=== PATIENT | male | born 1995 | race Hispanic/Latino ===

== ENCOUNTER 2017-11-22 14:16 | Emergency (ER) | payer OTHER, SELFPAY ==
--- NOTE | 2017-11-22 15:28 | ER ---
Nurse's Notes [facility] Name: Erasto Villalobos III Age: 22 yrs Sex: Male : 1995 Arrival Date: 11/22/2017 Time: 14:20 Bed 6 Private MD: None, None Diagnosis: Cellulitis of right finger Presentation: 11/22 14:23 Presenting complaint: Patient states: Swelling and pain to right thumb since this AM. aj Transition of care: patient was not received from another setting of care. Onset of symptoms was November 22, 2017. Care prior to arrival: None. 14:23 Method Of Arrival: Ambulatory aj 14:23 Acuity: TIMOTHY 4 aj 15:45 Risk Assessment: Do you want to hurt yourself or someone else? Patient reports no sg desire to harm self or others. Initial Sepsis Screen: Does the patient meet any 2 criteria? No. Patient's initial sepsis screen is negative. Does the patient have a suspected source of infection? No. Patient's initial sepsis screen is negative. Triage Assessment: 14:24 General: Appears in no apparent distress. comfortable, Behavior is calm, cooperative, aj appropriate for age. Pain: Complains of pain in dorsal aspect of distal phalanx of right thumb, dorsal aspect of proximal phalanx of right thumb, palmar aspect of distal phalanx of right thumb and palmar aspect of proximal phalanx of right thumb. Neuro: Level of Consciousness is awake, alert, obeys commands, Oriented to person, place, time, situation, Appropriate for age. Respiratory: Airway is patent Respiratory effort is even, unlabored, Respiratory pattern is regular, symmetrical. Derm: Skin is intact, is healthy with good turgor, Skin is pink, warm \T\ dry. normal. Musculoskeletal: Swelling present in dorsal aspect of distal phalanx of right thumb, dorsal aspect of proximal phalanx of right thumb, palmar aspect of distal phalanx of right thumb, palmar aspect of proximal phalanx of right thumb and right thumbnail. Historical: - Allergies: 14:24 Amoxicillin; aj 14:24 PENICILLINS; aj - Home Meds: 14:24 None [Active]; aj - PMHx: 14:24 Asthma; aj - PSHx: 14:24 None; aj - Immunization history:: Adult Immunizations up to date. - Social history:: Smoking status: Patient uses tobacco products, smokes one-half pack cigarettes per day. - Family history:: not pertinent. - Ebola Screening: : Patient negative for fever greater than or equal to 101.5 degrees Fahrenheit, and additional compatible Ebola Virus Disease symptoms Patient denies exposure to infectious person Patient denies travel to an Ebola-affected area in the 21 days before illness onset No symptoms or risks identified at this time. - History obtained from: spouse. Screenin:47 Abuse screen: Denies threats or abuse. Denies injuries from another. Nutritional iw screening: No deficits noted. Tuberculosis screening: No symptoms or risk factors identified. Fall Risk None identified. Assessment: 14:47 General: Appears in no apparent distress. Behavior is calm, cooperative. Pain: iw Complains of pain in right thumbnail and right hand. Neuro: Level of Consciousness is awake, alert, obeys commands, Oriented to person, place, time, Moves all extremities. Full function. Cardiovascular: Patient's skin is warm and dry. Respiratory: Respiratory effort is even, unlabored, Respiratory pattern is regular, symmetrical. Derm: Skin is pink, warm \T\ dry. normal. Vital Signs: 14:24 BP 129 / 63; Pulse 73; Resp 16; Temp 98.6; Pulse Ox 99% on R/A; Weight 86.18 kg; Height aj 5 ft. 5 in. (165.10 cm); 15:40 BP 122 / 60; Pulse 70; Resp 17; Temp 98.6; Pulse Ox 99% on R/A; Pain 0/10; sg 14:24 Body Mass Index 31.62 (86.18 kg, 165.10 cm) ED Course: 14:20 Patient arrived in ED. mr 14:20 None, None is Private Physician. mr 14:24 Triage completed. aj 14:24 Arm band placed on left wrist. Patient placed in an exam room. aj 14:42 [facility] kav 14:42 Chris Cerrato MD is Attending Physician. kav 14:47 Andie Dunbar, GABRIELLA is Primary Nurse. iw 15:00 No provider procedures requiring assistance completed. Patient did not have IV access sg during this emergency room visit. 15:06 X-ray completed. Portable x-ray completed in exam room. Patient tolerated procedure ml well. 15:07 Hand Right 3 View XRAY: pain right hand thumb In Process Unspecified. EDMS 15:45 Patient has correct armband on for positive identification. Bed in low position. Call sg light in reach. Pulse ox on. NIBP on. Head of bed elevated. Administered Medications: No medications were administered Outcome: 15:27 Discharge ordered by . gabriela 15:45 Discharged to home ambulatory, with family. sg 15:45 Condition: good 15:45 Discharge instructions given to patient, Instructed on discharge instructions, follow up and referral plans. medication usage, safety practices, Demonstrated understanding of instructions, follow-up care, medications, Prescriptions given X 3. 15:50 Patient left the ED. sg Signatures: Dispatcher [employer] EDMS Jeferson Blackburn RN Keara Chadwick RN Doreen Yousif, LENS DOTTER LENS DOTTER Toya Dumont Irene, RN Claudia Woo
--- NOTE | 2017-11-22 15:28 | EDPHYS ---
Physician Documentation [facility] Name: Erasto Villalobos III Age: 22 yrs Sex: Male : 1995 Arrival Date: 11/22/2017 Time: 14:20 Bed 6 Private MD: None, None ED Physician Chris Cerrato HPI: 11/22 14:43 This 22 yrs old Male presents to ER via Ambulatory with complaints of Thumb kav swelling. 14:52 The patient or guardian complains of swelling. The complaints affect the right hand. kav Context: The problem was sustained at an unknown location, resulted from unknown cause. Onset: The symptoms/episode began/occurred acutely, 1 day(s) ago. Treatment prior to arrival includes: no previous treatment. Modifying factors: The symptoms are alleviated by nothing. the symptoms are aggravated by movement. Associated signs and symptoms: Pertinent positives: erythema, swelling, Pertinent negatives: deformity, fever, nausea, numbness, tingling, vomiting, weakness. Severity of symptoms: At their worst the symptoms were mild, just prior to arrival. The patient has not experienced similar symptoms in the past. The patient has not recently seen a physician. 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 Historical: - Allergies: 14:24 Amoxicillin; aj 14:24 PENICILLINS; aj - Home Meds: 14:24 None [Active]; aj - PMHx: 14:24 Asthma; aj - PSHx: 14:24 None; aj - Immunization history:: Adult Immunizations up to date. - Social history:: Smoking status: Patient uses tobacco products, smokes one-half pack cigarettes per day. - Family history:: not pertinent. - Ebola Screening: : Patient negative for fever greater than or equal to 101.5 degrees Fahrenheit, and additional compatible Ebola Virus Disease symptoms Patient denies exposure to infectious person Patient denies travel to an Ebola-affected area in the 21 days before illness onset No symptoms or risks identified at this time. - History obtained from: spouse. ROS: 14:53 Constitutional: Negative for fever, chills, and weight loss, Eyes: Negative for injury, kav pain, redness, and discharge, ENT: Negative for injury, pain, and discharge, Neck: Negative for injury, pain, and swelling, Cardiovascular: Negative for chest pain, palpitations, and edema, Respiratory: Negative for shortness of breath, cough, wheezing, and pleuritic chest pain, Abdomen/GI: Negative for abdominal pain, nausea, vomiting, diarrhea, and constipation, Back: Negative for injury and pain, : Negative for injury, bleeding, discharge, and swelling, MS/Extremity: Negative for injury and deformity, Neuro: Negative for headache, weakness, numbness, tingling, and seizure, Psych: Negative for depression, anxiety, suicide ideation, homicidal ideation, and hallucinations, Allergy/Immunology: Negative for hives, rash, and allergies, Endocrine: Negative for neck swelling, polydipsia, polyuria, polyphagia, and marked weight changes, Hematologic/Lymphatic: Negative for swollen nodes, abnormal bleeding, and unusual bruising. 14:53 Skin: Positive for erythema, swelling, of the palmar aspect of proximal phalanx of right thumb. Exam: 14:53 Constitutional: This is a well developed, well nourished patient who is awake, alert, kav and in no acute distress. Head/Face: Normocephalic, atraumatic. Eyes: Pupils equal round and reactive to light, extra-ocular motions intact. Lids and lashes normal. Conjunctiva and sclera are non-icteric and not injected. Cornea within normal limits. Periorbital areas with no swelling, redness, or edema. ENT: Nares patent. No nasal discharge, no septal abnormalities noted. Tympanic membranes are normal and external auditory canals are clear. Oropharynx with no redness, swelling, or masses, exudates, or evidence of obstruction, uvula midline. Mucous membranes moist. Neck: Trachea midline, no thyromegaly or masses palpated, and no cervical lymphadenopathy. Supple, full range of motion without nuchal rigidity, or vertebral point tenderness. No Meningismus. Chest/axilla: Normal chest wall appearance and motion. Nontender with no deformity. No lesions are appreciated. Cardiovascular: Regular rate and rhythm with a normal S1 and S2. No gallops, murmurs, or rubs. Normal PMI, no JVD. No pulse deficits. Respiratory: Lungs have equal breath sounds bilaterally, clear to auscultation and percussion. No rales, rhonchi or wheezes noted. No increased work of breathing, no retractions or nasal flaring. Abdomen/GI: Soft, non-tender, with normal bowel sounds. No distension or tympany. No guarding or rebound. No evidence of tenderness throughout. Back: No spinal tenderness. No costovertebral tenderness. Full range of motion. MS/ Extremity: Pulses equal, no cyanosis. Neurovascular intact. Full, normal range of motion. Neuro: Awake and alert, GCS 15, oriented to person, place, time, and situation. Cranial nerves II-XII grossly intact. Motor strength 5/5 in all extremities. Sensory grossly intact. Cerebellar exam normal. Normal gait. Psych: Awake, alert, with orientation to person, place and time. Behavior, mood, and affect are within normal limits. 14:53 Skin: cellulitis, that is minimal, on the palmar aspect of proximal phalanx of right thumb. Vital Signs: 14:24 BP 129 / 63; Pulse 73; Resp 16; Temp 98.6; Pulse Ox 99% on R/A; Weight 86.18 kg; Height aj 5 ft. 5 in. (165.10 cm); 15:40 BP 122 / 60; Pulse 70; Resp 17; Temp 98.6; Pulse Ox 99% on R/A; Pain 0/10; sg 14:24 Body Mass Index 31.62 (86.18 kg, 165.10 cm) aj MDM: 14:42 Medical screening is not applicable. ka 15:26 Data reviewed: vital signs, nurses notes, radiologic studies, plain films. [facility] 11/22 14:51 Order name: Hand Right 3 View XRAY: pain right hand thumb kav Administered Medications: No medications were administered Disposition: 22:11 Co-signature as Attending Physician, Chris Cerrato MD I agree with the assessment and kdr plan of care. Disposition: 11/22/17 15:27 Discharged to Home. Impression: Cellulitis of right finger. - Condition is Stable. - Discharge Instructions: Cellulitis, [id number]. - Prescriptions for mupirocin 2 % Topical ointment - apply 1 application by TOPICAL route 3 times per day; 1 tube. Bactrim DS 800- 160 mg Oral Tablet - take 1 tablet by ORAL route every 12 hours for 10 days; 20 tablet. Ibuprofen 800 mg Oral Tablet - take 1 tablet by ORAL route every 8 hours As needed take with food; 30 tablet. - Medication Reconciliation Form, Thank You Letter, Antibiotic Education, Prescription Opioid Use, Work release form form. - Follow up: Private Physician; When: 5 - 6 days; Reason: If symptoms return, Recheck today's complaints, Continuance of care, Re-evaluation by your physician. - Problem is new. - Symptoms have improved. Signatures: Dispatcher [employer] EDMS Jeferson Blackburn, RN Keara Chadwick RN Chris Galvez MD MD kdr Vern, Katherine, VIDEO GAME MAKER VIDEO GAME MAKER ka Corrections: (The following items were deleted from the chart) 45 14:44 The patient presents to the emergency department with diarrhea, 5 times today, kavka 45 14:44 Onset: The symptoms/episode began/occurred acutely, kav kav 45 14:44 Possible causes: sick contacts, [facility] kav 45 14:44 The symptoms are aggravated by nothing. The symptoms are alleviated by nothing. kav kav :45 14:44 Associated signs and symptoms: Pertinent positives: diarrhea, nausea, Pertinent kav negatives: anorexia, constipation, hematuria, kav :45 14:44 Severity of symptoms: At their worst the symptoms were moderate just prior to [facility] arrival, kav 15:50 15:27 11/22/2017 15:27 Discharged to Home. Impression: Cellulitis of right finger. sg Condition is Stable. Forms are Medication Reconciliation Form, Thank You Letter, Antibiotic Education, Prescription Opioid Use. Follow up: Private Physician; When: 5 - 6 days; Reason: If symptoms return, Recheck today's complaints, Continuance of care, Re-evaluation by your physician. Problem is new. Symptoms have improved. kav
--- NOTE | 2017-11-22 15:39 | RAD REPORT ---
EXAM DESCRIPTION: RAD - Hand Right 3 View - 11/22/2017 3:11 pm CLINICAL HISTORY: Painful right thumb, no description of a precipitating injury. COMPARISON: None. FINDINGS: No fracture is identified. There is no dislocation or periosteal reaction noted. The firs t MCP joint and IP joint show no acute findings. No air or foreign body in the soft tissues. IMPRESSION: Negative right hand examination.
== END 2017-11-22 15:50 | disposition home or self-care (01) ==
LOC: ER 14:16
DX: L03.011 Cellulitis of right finger (principal); J45.909 Unspecified asthma, uncomplicated; F17.210 Nicotine dependence, cigarettes, uncomplicated; Z88.0 Allergy status to penicillin
CPT/HCPCS: 99283